=== PATIENT | female | born 1955 ===

== ENCOUNTER → 2018-05-13 | Emergency (ER) | payer OTHER ==
[~2018-05-13] VITALS: Ht 165.1 cm; Wt 68.0 kg
== END | disposition designated cancer center or children's hospital (05) ==
LOC: ER 11:03
DX: I60.8 Other nontraumatic subarachnoid hemorrhage (principal)

== ENCOUNTER 2019-02-28 11:39 | Emergency (ER) | payer OTHER ==
[~2019-02-28] VITALS: Ht 165.1 cm; Wt 63.5 kg
[2019-02-28] MEDS ORDERED: METFORMIN HCL500 MG (11:56)
[2019-02-28] MEDS ORDERED: ATACAND16 MG (11:56)
[2019-02-28] MEDS ORDERED: LIPITOR20 MG (11:57)
== END 2019-02-28 21:15 | disposition home or self-care (01) ==
LOC: ER 11:39
DX: G40.802 Other epilepsy, not intractable, without status epilepticus (principal)